=== PATIENT | male | born 1980 | race Caucasian/White ===

== ENCOUNTER 2021-02-05 06:00 | Emergency (ER) | payer MEDICAID ==
[~2021-02-05] VITALS: Ht 175.3 cm; Wt 99.8 kg
[2021-02-05 06:12] VITALS: BP 130/79
[2021-02-05] MEDS ORDERED: NACL 0.9% 1,000 ML IV SCH (06:50)
[2021-02-05] MEDS ORDERED: cefTRIAXone 1,000 MG VIAL ONE (07:13)
[2021-02-05] MEDS: MORPHINE SULFATE 2 MG/ML SYR IVP ONE (07:17)
[2021-02-05] MEDS: NACL 0.9% 1,000 ML IV ONE (07:17)
[2021-02-05] MEDS: ONDANSETRON 4 MG/2 ML VIAL IVP ONE (07:18)
[2021-02-05 07:32] LABS: BASOPHILS # (AUTO) 0.1 K/uL (0.00-0.22); BASOPHILS % (AUTO) 0.5 % (0.0-2.0); EOSINOPHILS % (AUTO) 0.3 % (0.0-4.0); HEMATOCRIT 42.1 % (36-52); HEMOGLOBIN 14.7 g/dL (12.0-18.0); LYMPHOCYTES # (AUTO) 2.2 K/uL (2.0-11.5); LYMPHOCYTES % (AUTO) 18.1 % (20.5-51.1); MEAN CORPUSCULAR HEMOGLOBIN 29 pg (27-31); MEAN CORPUSCULAR HGB CONC 35 g/dL (33-37); MEAN CORPUSCULAR VOLUME 81.7 fL (80-94); MONOCYTES # (AUTO) 0.6 K/uL (0.8-1.0); MONOCYTES % (AUTO) 4.7 % (1.7-9.3); NEUTROPHILS # (AUTO) 9.3 K/uL (1.8-7.7); NEUTROPHILS % (AUTO) 76.4 % (42.2-75.2); PLATELET COUNT (AUTO) 223 K/uL (140-450); RED BLOOD CELL COUNT(AUTO) 5.16 MIL/uL (4.20-6.10); RED CELL DISTRIBUTION WIDTH 12.5 % (11.6-13.7); WHITE BLOOD COUNT (AUTO) 12.2 K/uL (4.8-10.8)
[2021-02-05 07:33] LABS: APPEARANCE,URINE SL CLOUDY (CLEAR); BILIRUBIN,URINE NEGATIVE (NEGATIVE); BLOOD, URINE 3+ (NEGATIVE); COLOR,URINE YELLOW (YELLOW); LEUKOCYTE ESTERASE ,URINE NEGATIVE (NEGATIVE); NITRITE, URINE POSITIVE (NEGATIVE); UGLUCOSE 3+ (NEGATIVE)
[2021-02-05] MEDS: KETOROLAC 30 MG/ML VIAL IVP ONE (07:34)
[2021-02-05 07:41] LABS: RBC,URINE 11-20 (MOD) /HPF (0-5); WBC,URINE 0-5 /HPF (0-5)
[2021-02-05 07:55] LABS: ALBUMIN 3.6 g/dL (3.4-5.0); ANION GAP 11.8 (8-16); CARBON DIOXIDE 26.9 mmol/L (21-32); CREATININE 0.6 mg/dL (0.6-1.3); POTASSIUM 3.7 mmol/L (3.5-5.1); TOTAL BILIRUBIN 0.4 mg/dL (0.0-1.0)
[2021-02-05] MEDS ORDERED: METF-988 PO (08:26)
[2021-02-05] MEDS ORDERED: IBUP-2213 PO (08:26)
[2021-02-05] MEDS ORDERED: ONDA-24 SL (08:26)
[2021-02-05] MEDS ORDERED: BLOO1EAC40 MC (08:26)
[2021-02-05] MEDS ORDERED: LANC1COM6 MC (08:26)
[2021-02-05] MEDS ORDERED: CEPH500C16 PO (08:26)
[2021-02-05 08:48] VITALS: BP 130/79
== END 2021-02-05 08:48 | disposition home or self-care (01) ==
LOC: MED 06:00
DX: N39.0 Urinary tract infection, site not specified (principal); R31.9 Hematuria, unspecified
CPT/HCPCS: 36415; 74176; 80053; 81001; 83036; 83690; 85025; 87040; 87086; 96365; 96375; 99284; J0696; J1885; J7030; J2270; J2405

== ENCOUNTER 2021-02-26 11:20 | Inpatient (IN) | payer MEDICAID, SELFPAY ==
[~2021-02-26] VITALS: Ht 177.8 cm; Wt 117.0 kg
[~2021-02-26 11:20] MED LIST: BLOO1EAC40 MC; CEPH500C16 PO; IBUP-2213 PO; LANC1COM6 MC; METF-988 PO; ONDA-24 SL
[2021-02-26 11:26] VITALS: BP 156/92
--- NOTE | 2021-02-26 11:36 | NUR ---
C/O FEVER/DYSURIA/FLANK PAIN AND BODY ACHES THAT BEGAN LAST NIGHT. DENIES ANY COUGH OR SOB, DENIES N/V/D PATIENT STATES HE FINISHED ANTIBIOTICS FOR UTI TWO DAYS AGO PATIENT TOOK IBUPROFEN THIS MORNING AT 0700 PMH: DM 2 NKDA
[2021-02-26] MEDS ORDERED: KETOROLAC 30 MG/ML VIAL IVP ONE (12:00)
[2021-02-26] MEDS ORDERED: ONDANSETRON 4 MG/2 ML VIAL IVP ONE (12:00)
[2021-02-26] MEDS ORDERED: NACL 0.9% 1,500 ML IV ONE (12:00)
[2021-02-26] MEDS ORDERED: NACL 0.9% 1,000 ML IV SCH (12:00)
[2021-02-26] MEDS ORDERED: cefTRIAXone 2,000 MG in DEXTROSE 5% 100 ML IV ONE (12:00)
[2021-02-26] MEDS ORDERED: cefTRIAXone 2,000 MG VIAL ONE (12:04)
[2021-02-26 12:25] LABS: BILIRUBIN,URINE NEGATIVE (NEGATIVE); BLOOD, URINE 3+ (NEGATIVE); COLOR,URINE YELLOW (YELLOW); LEUKOCYTE ESTERASE ,URINE 1+ (NEGATIVE); NITRITE, URINE POSITIVE (NEGATIVE); UGLUCOSE NEGATIVE (NEGATIVE)
[2021-02-26 12:27] LABS: APPEARANCE,URINE HAZY (CLEAR)
[2021-02-26 12:48] LABS: BASOPHILS % (AUTO) 0.2 % (0.0-2.0); EOSINOPHILS % (AUTO) 0.1 % (0.0-4.0); HEMATOCRIT 41.6 % (36-52); HEMOGLOBIN 14.2 g/dL (12.0-18.0); LYMPHOCYTES # (AUTO) 0.9 K/uL (2.0-11.5); LYMPHOCYTES % (AUTO) 7.1 % (20.5-51.1); MEAN CORPUSCULAR HEMOGLOBIN 28 pg (27-31); MEAN CORPUSCULAR HGB CONC 34 g/dL (33-37); MONOCYTES # (AUTO) 0.6 K/uL (0.8-1.0); MONOCYTES % (AUTO) 4.7 % (1.7-9.3); NEUTROPHILS # (AUTO) 10.9 K/uL (1.8-7.7); NEUTROPHILS % (AUTO) 87.9 % (42.2-75.2); PLATELET COUNT (AUTO) 182 K/uL (140-450); RED BLOOD CELL COUNT(AUTO) 5.02 MIL/uL (4.20-6.10); RED CELL DISTRIBUTION WIDTH 12.8 % (11.6-13.7); WHITE BLOOD COUNT (AUTO) 12.4 K/uL (4.8-10.8)
[2021-02-26 13:03] LABS: ALBUMIN 4.2 g/dL (3.4-5.0); ANION GAP 14.3 (8-16); CARBON DIOXIDE 23.2 mmol/L (21-32); CREATININE 0.8 mg/dL (0.6-1.3); POTASSIUM 3.5 mmol/L (3.5-5.1); TOTAL BILIRUBIN 0.5 mg/dL (0.0-1.0)
--- NOTE | 2021-02-26 13:15 | NUR ---
PATIENT TAKEN FOR CT SCAN
[2021-02-26] MEDS ORDERED: LACTATED RINGERS 1,000 ML IV ONE (14:00)
[2021-02-26] MEDS ORDERED: ACETAMINOPHEN 325 MG TAB PO ONE (14:05)
[2021-02-26] MEDS: NACL 0.9% 1,000 ML IV SCH (14:25)
--- NOTE | 2021-02-26 14:44 | NUR ---
PATIENT STATES PAIN HAS DECREASED TO 2/10.
--- NOTE | 2021-02-26 16:01 | NUR ---
Patient will be admitted to care of [facility]. Admited to TELE. Will go to [facility]. Belongings list completed. Report to JENNIFER FRANK.
[2021-02-26] MEDS ORDERED: guaiFENesin DM 200/20 MG-10 ML 10 ML UDC PO PRN (16:15)
[2021-02-26] MEDS ORDERED: POTASSIUM CHLORIDE 10 MEQ TABER PO PRN (16:15)
[2021-02-26] MEDS ORDERED: DOCUSATE SODIUM 100 MG GELCAP PO PRN (16:15)
[2021-02-26] MEDS ORDERED: ZOLPIDEM 5 MG TAB PO PRN (16:15)
[2021-02-26] MEDS ORDERED: DEXTROSE 50% 50 ML SYR IVP PRN (16:20)
[2021-02-26] MEDS: BLOOD GLUCOSE MONITORING 1 DEV DEV FS SCH ×2 (16:30→20:22)
[2021-02-26 16:31] VITALS: BP 147/77
--- NOTE | 2021-02-26 16:37 | NUR ---
PT BROUGHT IN ON [facility] BY ED FOR DX OF PYELONEPHRITIS AND UTI. PT IS A&OX4, SKIN INTACT AND ON ROOM AIR WITH CHEST RISING AND FALLING EVEN AND UNLABORED. PT REPORTS PAIN TOLERABLE AT THIS TIME. EDUCATION PROVIDED TO PATIENT ON NOT LETTING PAIN GET UNBEARABLE. PT IS ACCOMPANIED BY AT BEDSIDE. PT ABLE TO AMBULATE AND URINATE WITH NO PROBLEM. VITAL SIGNS WNL EXCEPT FEVER OF 102, WILL MEDICATED PER MD ORDER. COOLING MEASURES INITIATED. ADMISSION QUESTIONS AND PAPERWORK COMPLETED BY SUSAN. ALL SAFETY MEASURES IN PLACE, CALL LIGHT EDUCATION PROVIDED AND WITHIN REACH. WILL CONTINUE TO MONITOR.
[2021-02-26 17:14] LABS: CHOL/HDL RATIO 3.8 (1-4.5); FREE T4 (FREE THYROXINE) 0.82 ng/dL (0.76-1.46); MAGNESIUM 1.5 mg/dL (1.8-2.4); PHOSPHORUS 2.2 mg/dL (2.5-4.9); THYROID STIMULATING HORMONE 0.56 uIU/mL (0.34-3.74)
[2021-02-26 17:24] LABS: PROTHROMBIN TIME 10.2 secs (10.8-13.4)
[2021-02-26] MEDS: ACETAMINOPHEN 325 MG TAB PO PRN (18:18)
[2021-02-26] MEDS: HYDROcodone/APAP 7.5/325 MG 1 TAB PO PRN (18:18)
--- NOTE | 2021-02-26 18:19 | NUR ---
MEDICATED PER MD ORDER FOR PAIN, AND MEDICATED FOR FEVER OF 102.2
--- NOTE | 2021-02-26 19:30 | NUR ---
RECEIVED REPORT FROM JENNIFER LAGUERRE AT BEDSIDE FOR CONTINUITY OF CARE, PT IN STABLE CONDITION.
--- NOTE | 2021-02-26 19:34 | NUR ---
PT ENDORSED TO WEAVER NARROW FABRICS NURSE FOR CONTINUITY OF CARE IN STABLE CONDITION
[2021-02-26] MEDS: metFORMIN 500 MG TAB PO SCH (19:43)
[2021-02-26 20:00] VITALS: BP 126/65
[2021-02-26] MEDS: INSULIN LISPRO SLIDING SCALE 100 UNITS/ML VIAL SUBQ PRN (20:15)
--- NOTE | 2021-02-26 20:30 | NUR ---
PT LYING IN BED AT BEDSIDE, HE IS AOX4, ON ROOM AIR, SKIN INTACT WITH RAC 20 GUAGE RUNNING LACTATED RINGERS AT 130 MLS/HR. V/S FOLLOWS: T 99.9 P 105 R 20 B/P 126/65 02 97% ON ROOM AIR. PT GIVEN COOLING MEASURES OF COOL CLOTH, ICE PACKS AND CHG BED BATH. WILL RETAKE TEMPERATURE LATER. ALL UNIVERSAL FALLS PRECAUTIONS IN PLACE.
--- NOTE | 2021-02-26 21:00 | NUR ---
IV SITE INTACT AND FLUSHED PATENT. FINGERSTICK IS 197, PT GIVEN 2 UNITS OF HUMALOG COVERAGE PER S/S. EXPLAINED TO PT THAT ORDERED METFORMIN IS BEING HELD DUE TO PT CT OF ABDOMEN WITH CONTRAST TEST AND THAT METFORMIN WILL BE HELD FOR 48HR,AND AFTER,THAT HE WILL RECEIVE THAT METFORMIN AGAIN. PT VERBALIZED UNDERSTANDING.
[2021-02-26 22:13] LABS: BARBITURATE, URINE NEGATIVE ng/ml (NEG <=200); BENZODIAZEPINE, URINE NEGATIVE ng/mL (NEG <=200); CANNABINOID, URINE NEGATIVE ng/mL (NEG <=50); COCAINE, URINE NEGATIVE ng/mL (NEG <=300); OPIATE, URINE NEGATIVE ng/mL (NEG <=2000); PHENCYCLIDINE SCREEN,URINE NEGATIVE ng/mL (NEG <=25)
--- NOTE | 2021-02-26 22:30 | NUR ---
RETAKE OF PT TEMPERATURE IS 98.3 NEW BAG OF LACTATED RINGERS HUNG ALL REQUESTED NEEDS ATTENDED BY STAFF. ALL UNIVERSAL PRECAUTIONS IN PLACE.
[2021-02-27] VITALS: BP 128/64
--- NOTE | 2021-02-27 00:25 | NUR ---
PT WAS UP FROM BED TO TOILET AND ABLE TO AMBULATE INDEPENDENTLY. IV FLUIDS RUNNING AT 130MLS/HR ORDERED. NO C/O VOICED H20 FILLED PER REQUEST V/S FOLLOWS: T 98.4 P 88 R 20 B/P 128/64 02 97% ON ROOM AIR. ALL UNIVERSAL FALLS PRECAUTIONS IN PLACE.
[2021-02-27] MEDS: NACL 0.9% 1,000 ML IV SCH ×3 (02:34→18:03)
[2021-02-27 04:00] VITALS: BP 132/72
[2021-02-27] MEDS: HYDROcodone/APAP 7.5/325 MG 1 TAB PO PRN ×2 (04:21→13:45)
--- NOTE | 2021-02-27 04:30 | NUR ---
PT IN BED LAB DRAWS DONE AT BEDSIDE, PT C/O MODERATE BACK PAIN , HE WAS GIVEN 1 TAB OF NORCO PO/PRN . V/S FOLLOWS: T 99.1 P 94 R 20 B/P 132/72 02 97% ON ROOM AIR. PT ALSO GIVEN COOLING MEASURES OF COOL CLOTH AND CHG WIPES. WILL MONITOR FOR TEMP DECREASE AND PAIN RELIEF. ALL UNIVERSAL FALLS PRECAUTIONS IN PLACE.
[2021-02-27 05:26] LABS: BASOPHILS % (AUTO) 0.1 % (0.0-2.0); EOSINOPHILS % (AUTO) 0.1 % (0.0-4.0); HEMATOCRIT 39.2 % (36-52); HEMOGLOBIN 13.1 g/dL (12.0-18.0); LYMPHOCYTES # (AUTO) 1.6 K/uL (2.0-11.5); LYMPHOCYTES % (AUTO) 12.5 % (20.5-51.1); MEAN CORPUSCULAR HEMOGLOBIN 28 pg (27-31); MEAN CORPUSCULAR HGB CONC 33 g/dL (33-37); MEAN CORPUSCULAR VOLUME 84.9 fL (80-94); NEUTROPHILS # (AUTO) 10.2 K/uL (1.8-7.7); NEUTROPHILS % (AUTO) 79.3 % (42.2-75.2); PLATELET COUNT (AUTO) 178 K/uL (140-450); RED BLOOD CELL COUNT(AUTO) 4.62 MIL/uL (4.20-6.10); WHITE BLOOD COUNT (AUTO) 12.8 K/uL (4.8-10.8)
[2021-02-27 06:08] LABS: CREATININE 0.7 mg/dL (0.6-1.3); POTASSIUM 3.5 mmol/L (3.5-5.1)
[2021-02-27 06:21] LABS: CARBON DIOXIDE 23.5 mmol/L (21-32)
[2021-02-27] MEDS: INSULIN LISPRO SLIDING SCALE 100 UNITS/ML VIAL SUBQ PRN ×4 (06:38→21:10)
[2021-02-27] MEDS: BLOOD GLUCOSE MONITORING 1 DEV DEV FS SCH ×4 (06:39→21:07)
--- NOTE | 2021-02-27 07:30 | NUR ---
RECEIVED BEDSIDE REPORT FROM BUGGY OPERATOR. PATIENT IS AWAKE, ALERT, AND COOPERATIVE. RESPIRATION EVEN UNLABORED ON ROOM AIR. NO DISTRESS NOTED, SKIN IS WARM AND DRY. IV PATENT AND INTACT. PLAN OF CARE WAS DISCUSSED. ALL SAFETY MEASURES IN PLACE. BED IS AT LOW POSITION. CALL LIGHT WITHIN REACH WILL CONTINUE TO MONITOR.
--- NOTE | 2021-02-27 07:59 | NUR ---
PATIENT HAS BEEN SCREENED AND CATEGORIZED LOW NUTRITION RISK. PATIENT WILL BE SEEN WITHIN 7 DAYS OF ADMISSION. 03/05/[address]
[2021-02-27] MEDS: PANTOPRAZOLE 40 MG TABEC PO SCH (08:54)
--- NOTE | 2021-02-27 08:54 | NUR ---
ALL SCHEDULED MEDS GIVEN PER ORDER. NO ASE NOTED. WILL CONTINUE TO MONITOR
[2021-02-27] MEDS: ONDANSETRON 4 MG/2 ML VIAL IM/IVP PRN ×2 (08:58→18:48)
--- NOTE | 2021-02-27 08:58 | NUR ---
PATIENT COMPLAINS OF FEELING NAUSEAS. PRN ZOFRAN ADMINISTERED PER ORDERS. WILL CONTINUE TO MONITOR.
[2021-02-27] MEDS: metFORMIN 500 MG TAB PO SCH ×2 (09:00→21:05)
[2021-02-27 13:03] LABS: T4 (THYROXINE) 7.7 ug/dL (4.5 - 12.0)
--- NOTE | 2021-02-27 13:45 | NUR ---
SCHEDULED IV ROCEPHIN GIVEN PER ORDER. PATIENT COMPLAINED OF BACK PAIN 01/22. PRN PAIN MEDS GIVEN PER ORDER. WILL CONTINUE TO MONITOR.
--- NOTE | 2021-02-27 13:59 | NUR ---
FAMILY AT BEDSIDE
[2021-02-27 14:35] VITALS: BP 135/69
--- NOTE | 2021-02-27 15:28 | NUR ---
DC PLANNING: CM SPOKE WITH PATIENT AT BEDSIDE, CONFIRMED ADDRESS AND PHONE NUMBER. PATIENT LIVES IN A GROUND FLOOR APARTMENT WITH HIS AND THREE CHILDREN. PATIENT IS DIABETIC BUT DOES NOT HAVE A PCP, STATES HE COMES TO THE HOSPITAL WHEN HE RUNS OUT OF INSULIN. HAS A GLUCOMETER AND CHECKS BLOOD SUGARS BID, STATES THEY ARE USUALLY AROUND 160. DOES NOT FOLLOW AN ADA DIET, STATES HE DOESN'T EAT BREAD OR DRINK SODAS. COUNSELED PATIENT THAT HE NEEDS A PCP FOR DIABETIC MONITORING, RESOURCES GIVEN FOR NURSE HELP LINE TO ASSIST WITH FINDING A PCP, ALSO INFORMATION ON ALL SERVICES COVERED BY [facility] PATIENT WAS CONCERNED ABOUT THE COST OF SEEING A PCP. STATES HE DRINKS A LITTLE, NO TOBACCO OR DRUG USE. DC PLAN IS TO RETURN HOME WHEN STABLE, CM WILL CONTINUE TO FOLLOW FOR NEEDS.
[2021-02-27 16:00] VITALS: BP 140/76
[2021-02-27] MEDS: ACETAMINOPHEN 325 MG TAB PO PRN (17:41)
--- NOTE | 2021-02-27 17:53 | NUR ---
ADMINISTERED TYLENOL FOR TEMP OF 101.7. PATIENT TOLERATED WELL. WILL CONTINUE TO MONITOR.
--- NOTE | 2021-02-27 18:52 | NUR ---
RECHECKED TEMP AFTER TYLENOL ADMINISTRATION DECREASED TO 99.1. DECREASE IN FEVER. PATIENT COMPLAINS OF BEING HOT, OFFERED COOLING MEASURES AND ICED WATER. WILL CONTINUE TO MONITOR.
--- NOTE | 2021-02-27 19:15 | NUR ---
RECEIVED REPORT FROM AM RN. PATIENT ON BED RESTING. NO SOB NOTED. AT BEDSIDE. SAFETY MEASURES IN PLACE CALL LIGHT WITHIN REACH. IVF OF NS INFUSING AT ML/HR TOLERATING WELL.
--- NOTE | 2021-02-27 19:16 | NUR ---
ENDORSED PATIENT TO AFTERNOON BABYSITTER NURSE, AT BEDSIDE FOR CONTINUITY OF CARE
--- NOTE | 2021-02-27 19:17 | NUR ---
ADMINISTERED ZOFRAN PRN 2 ML FOR NAUSEA. PATIENT TOLERATED WELL. WILL CONTINUE TO MONITOR.
[2021-02-27 20:00] VITALS: BP 120/63
--- NOTE | 2021-02-27 21:05 | NUR ---
ADMINISTERED SCHEDULED MEDS ORDERED.
[2021-02-28] VITALS: BP 124/75
--- NOTE | 2021-02-28 02:31 | NUR ---
CHECKED PATIENT SLEEPING. NO DISTRESS NOTED.
[2021-02-28 04:00] VITALS: BP 158/77
[2021-02-28 06:06] LABS: BASOPHILS % (AUTO) 0.2 % (0.0-2.0); EOSINOPHILS % (AUTO) 0.6 % (0.0-4.0); HEMOGLOBIN 12.7 g/dL (12.0-18.0); LYMPHOCYTES # (AUTO) 1.1 K/uL (2.0-11.5); LYMPHOCYTES % (AUTO) 18.6 % (20.5-51.1); MEAN CORPUSCULAR HEMOGLOBIN 29 pg (27-31); MEAN CORPUSCULAR HGB CONC 34 g/dL (33-37); MEAN CORPUSCULAR VOLUME 83.4 fL (80-94); MONOCYTES # (AUTO) 0.5 K/uL (0.8-1.0); MONOCYTES % (AUTO) 8.3 % (1.7-9.3); NEUTROPHILS # (AUTO) 4.5 K/uL (1.8-7.7); NEUTROPHILS % (AUTO) 72.3 % (42.2-75.2); PLATELET COUNT (AUTO) 153 K/uL (140-450); RED BLOOD CELL COUNT(AUTO) 4.43 MIL/uL (4.20-6.10); RED CELL DISTRIBUTION WIDTH 13.1 % (11.6-13.7); WHITE BLOOD COUNT (AUTO) 6.2 K/uL (4.8-10.8)
[2021-02-28] MEDS: NACL 0.9% 1,000 ML IV SCH ×3 (06:25→22:00)
[2021-02-28] MEDS: BLOOD GLUCOSE MONITORING 1 DEV DEV FS SCH ×4 (06:30→20:36)
[2021-02-28] MEDS: INSULIN LISPRO SLIDING SCALE 100 UNITS/ML VIAL SUBQ PRN ×3 (06:32→20:38)
[2021-02-28 06:35] LABS: ANION GAP 9.8 (8-16); CARBON DIOXIDE 26.1 mmol/L (21-32); CREATININE 0.7 mg/dL (0.6-1.3); POTASSIUM 3.9 mmol/L (3.5-5.1)
--- NOTE | 2021-02-28 07:37 | NUR ---
ENDORSED TO AM SHIFT RN FOR CONTINUITY OF CARE. PATIENT IS STABLE.
--- NOTE | 2021-02-28 07:38 | NUR ---
RECEIVED REPORT FROM DRILL RUNNER HELPER NURSE. PATIENT SITTING DOWN AT BEDSIDE CHAIR WATCHING TV. NO DISTRESS NOTED. DENIES ANY PAIN. NO DISTRESS NOTED. IV SITE INTACT, PATENT, AND INFUSING IVF PER MD ORDERS. REVIEWED PLAN OF CARE WITH PATIENT. PATIENT VERBALIZED UNDERSTANDING. SAFETY MEASURES IN PLACE, CALL LIGHT WITHIN REACH. WILL CONTINUE TO MONITOR.
[2021-02-28 08:00] VITALS: BP 124/64
[2021-02-28] MEDS: PANTOPRAZOLE 40 MG TABEC PO SCH (09:23)
[2021-02-28] MEDS: metFORMIN 500 MG TAB PO SCH ×2 (09:23→16:57)
[2021-02-28 16:00] VITALS: BP 146/75
--- NOTE | 2021-02-28 16:57 | NUR ---
SCHEDULED MEDICATIONS DUE GIVEN. WILL CONTINUE TO MONITOR.
--- NOTE | 2021-02-28 19:45 | NUR ---
REPORT RECEIVED FROM AM RN.PT IS AWAKE,ALERT AND ORIENTED.RESP UNLABORED IN RA.LUNGS CLEAR. CALL LIGHT IN REACH..WILL CONTINUE MONITORING.
[2021-02-28 20:00] VITALS: BP 144/72
[2021-02-28 20:10] VITALS: BP 140/76
[2021-02-28] MEDS: ACETAMINOPHEN 325 MG TAB PO PRN (20:37)
[2021-02-28] MEDS ORDERED: ATORVASTATIN 20 MG TAB PO SCH (21:00)
--- NOTE | 2021-02-28 21:36 | NUR ---
PSIE=[phone].TYLENOL PO 650MG GIVEN EARLIER.RECHECKED TEMP=98.4 NOW.
--- NOTE | 2021-03-01 | NUR ---
SLEEPING W/O ANY DISTRESS NOTED.CALL LIGHT IN REACH.FRQUENT ROUND DONE.
[2021-03-01 04:08] VITALS: BP 144/79
[2021-03-01] MEDS: BLOOD GLUCOSE MONITORING 1 DEV DEV FS SCH (05:20)
--- NOTE | 2021-03-01 06:25 | NUR ---
KH=[id number],WILL COVER.NO DISTRESS NOTED.NO FEVER ANY MORE.IVF IS IN PROGRESS.CALL LIGHT WITHIN REACH.
[2021-03-01] MEDS: INSULIN LISPRO SLIDING SCALE 100 UNITS/ML VIAL SUBQ PRN (06:31)
[2021-03-01 06:41] LABS: BASOPHILS % (AUTO) 0.3 % (0.0-2.0); EOSINOPHILS % (AUTO) 0.4 % (0.0-4.0); HEMATOCRIT 38.6 % (36-52); HEMOGLOBIN 13.2 g/dL (12.0-18.0); LYMPHOCYTES # (AUTO) 0.8 K/uL (2.0-11.5); LYMPHOCYTES % (AUTO) 20.8 % (20.5-51.1); MEAN CORPUSCULAR HEMOGLOBIN 29 pg (27-31); MEAN CORPUSCULAR HGB CONC 34 g/dL (33-37); MEAN CORPUSCULAR VOLUME 83.7 fL (80-94); MONOCYTES # (AUTO) 0.4 K/uL (0.8-1.0); MONOCYTES % (AUTO) 11.8 % (1.7-9.3); NEUTROPHILS # (AUTO) 2.5 K/uL (1.8-7.7); NEUTROPHILS % (AUTO) 66.7 % (42.2-75.2); PLATELET COUNT (AUTO) 185 K/uL (140-450); RED BLOOD CELL COUNT(AUTO) 4.62 MIL/uL (4.20-6.10); RED CELL DISTRIBUTION WIDTH 12.9 % (11.6-13.7); WHITE BLOOD COUNT (AUTO) 3.8 K/uL (4.8-10.8)
[2021-03-01 07:01] LABS: ANION GAP 10.7 (8-16); CARBON DIOXIDE 26.1 mmol/L (21-32); CREATININE 0.8 mg/dL (0.6-1.3); POTASSIUM 3.8 mmol/L (3.5-5.1)
[2021-03-01 07:05] LABS: MAGNESIUM 1.8 mg/dL (1.8-2.4); PHOSPHORUS 3.3 mg/dL (2.5-4.9)
--- NOTE | 2021-03-01 07:35 | NUR ---
RECEIVED REPORT FROM POWDERER NURSE. PATIENT LYING DOWN IN BED SLEEPING, AROUSABLE BY VOICE. NO DISTRESS NOTED. DENIES ANY PAIN. AAOX4, ROOM AIR , IV SITE INTACT, PATENT AND INFUSING IVF PER MD ORDERS. REVIEWED PLAN OF CARE WITH PATIENT. PATIENT VERBALIZED UNDERSTANDING. SAFETY MEASURES IN PLACE, CALL LIGHT WITHIN REACH. WILL CONTINUE TO MONITOR.
[2021-03-01] MEDS ORDERED: lisinopriL 5 MG TAB PO SCH (09:00)
[2021-03-01] MEDS: metFORMIN 500 MG TAB PO SCH (10:14)
[2021-03-01] MEDS: PANTOPRAZOLE 40 MG TABEC PO SCH (10:14)
--- NOTE | 2021-03-01 11:00 | NUR ---
PATIENT SITTING IN BED TALKING ON HIS PHONE. CONDITION UNCHANGED. WILL CONTINUE TO MONITOR.
[2021-03-01] MEDS ORDERED: LEVO750T51 PO (12:08)
[2021-03-01] MEDS ORDERED: PANT40EC56 PO (12:08)
[2021-03-01] MEDS ORDERED: METF500T PO (12:08)
[2021-03-01] MEDS ORDERED: ATOR20TA40 PO (12:08)
[2021-03-01] MEDS ORDERED: LISI-648 PO (12:08)
--- NOTE | 2021-03-01 13:42 | NUR ---
DISCHARGE INSTRUCTIONS PROVIDED TO PATIENT IN PREFERRED LANGUAGE OF SURINAMESE. INSTRUCTIONS ON NEW/CHANGED MEDICATION REGIMEN AND SIDE EFFECTS, DIET REGIMEN, FOLLOW-UP WITH PCP, AND PHYSICAL ACTIVITY LIMITATIONS FOR 1 WEEK PER MD ORDERS. ANSWERED ALL OF PATIENT'S QUESTIONS REGARDING DISCHARGE. IV SITE REMOVED WITH MINIMAL BLOOD AND LUMEN INTACT. ID BANDS REMOVED. ESCORTED PATIENT DOWN TO LOBBY VIA STEADY AMBULATION. PATIENT DISCHARGED AT THIS TIME.
== END 2021-03-01 13:40 | disposition home or self-care (01) | DRG 720 ==
LOC: MED 11:20 → MTU 14:25
PROVIDERS: ADMIT Family Medicine; ATTEND Family Medicine
DX: A41.9 Sepsis, unspecified organism (principal); G93.41 Metabolic encephalopathy; E83.39 Other disorders of phosphorus metabolism; E83.42 Hypomagnesemia; E11.9 Type 2 diabetes mellitus without complications; E86.0 Dehydration; E87.1 Hypo-osmolality and hyponatremia; N12 Tubulo-interstitial nephritis, not specified as acute or chronic; K76.0 Fatty (change of) liver, not elsewhere classified; N28.1 Cyst of kidney, acquired; Z20.822 Contact with and (suspected) exposure to COVID-19; Z79.899 Other long term (current) drug therapy
CPT/HCPCS: 36415; 71045; 80048; 80053; 80305; 81001; 82150; 82948; 83036; 83605; 83690; 83735; 83880; 84100; 84436; 84439; 84443; 84479; 84484; 85025; 85610; 85730; 87040; 87081; 87086; 93005; 96361; 96365; 96375; 99285; J0696; J1885; J2405; J7060; Q9967